=== PATIENT | female | born 1950 | race Caucasian/White ===

== ENCOUNTER → 2016-04-23 | Outpatient (CLI) | payer OTHER, MEDICAID ==
[~2016-04-23] MED LIST: DOXY100C2 PO
--- OUTSIDE RECORDS SUMMARY | 2016-04-23 19:48 | XMS REPORT | Continuity of Care Document ---
Author Author [facility] Organization [facility] Address Unknown Phone Unavailable Care Team Providers Care Staff Midwife/Apprenticeship Director Name Role Phone NO, LOCAL PHYSICIAN PCP Unavailable Insurance Providers Payer Name Policy Number Subscriber Name Relationship [facility] [id number] Carlie Liu 16 Self / Same As Patient Advance Directives Directive Response Recorded Date/Time Advance Directives No 01/12/16 1:30pm Resuscitation Status Full Code 01/12/16 1:30pm Chief Complaint and Reason for Visit Chief Complaint Psych/Social Disorder Reason for Visit Urinary tract infection Psychosis Problems Active Problems Medical Problem Onset Date Status Nausea and vomiting Unknown Acute Psychosis Unknown Acute Urinary tract infection Unknown Acute Medications No medication information available. Social History Social History Problem Response Recorded Date/Time Alcohol Use Denies Use 11/06/2015 11:32pm Recreational Drug Use No 11/06/2015 11:32pm Recent Foreign Travel No 01/12/2016 1:30pm Recent Infectious Disease Exposure No 01/12/2016 1:30pm Hospitalization with Isolation Denies 01/12/2016 1:30pm Smoking Status Never a Smoker 01/12/2016 1:30pm Recent Hopitalizations No 01/12/2016 1:30pm Hospitalization with Isolation Denies 01/12/2016 1:30pm Query Response Start Date Stop Date Smoking Status Never a Smoker Hospital Discharge Instructions No hospital discharge instructions. Plan of Care Discharge Date 01/12/16 8:50pm Disposition 02 XFER SHT-TRM HOSP Condition at Discharge Improved Prescriptions See Medication Section Referrals NO,LOCAL PHYSICIAN - Primary Care Physician Functional Status No functional status results. Allergies, Adverse Reactions, Alerts No known allergies. Immunizations No immunization records. Vital Signs Acute Vital Signs Vital Response Date/Time Temperature (Fahrenheit) 97.6 degrees F (97.6 - 99.5) 01/12/2016 1:30pm Temperature (Calculated Celsius) 36.68305 degrees C (36.4 - 37.5) 01/12/2016 1:30pm Temperature Source Temporal 01/12/2016 1:30pm Pulse Rate (adult) 100 bpm (60 - 90) 01/12/2016 1:30pm Respiratory Rate 30 bpm (12 - 24) 01/12/2016 1:30pm O2 Sat by Pulse Oximetry 100 % (88 - 100) 01/12/2016 1:30pm Blood Pressure 133/87 mm Hg 01/12/2016 1:30pm Blood Pressure Mean 102 mm Hg 01/12/2016 1:30pm Pain Numeric Pain Scale 0-No Pain 01/12/2016 1:30pm Height (Feet) 5 feet 01/12/2016 1:30pm Height (Inches) 3 inches 01/12/2016 1:30pm Height (Calculated Centimeters) 160.991290 cm 01/12/2016 1:30pm Weight (Pounds) 120 pounds 01/12/2016 1:30pm Weight (Calculated Grams) 69996.085 gm 01/12/2016 1:30pm Weight (Calculated Kilograms) 54.754374 kilograms 01/12/2016 1:30pm Capillary Refill Capillary Refill Less Than 3 Seconds 01/12/2016 1:30pm Height 5 ft 3 in Weight 120 lb Body Mass Index 21.3 kg/m^2 Results Laboratory Results Test Name Result Units Flags Reference Collection Date/Time Result Date/ Time Comments White Blood Count 8.2 10^3/uL 4.3-11.0 01/12/2016 2:00pm 01/12/2016 2: 05pm Red Blood Count 4.53 10^6/uL 4.35-5.85 01/12/2016 2:00pm 01/12/2016 2: 05pm Hemoglobin 15.2 G/DL 11.5-16.0 01/12/2016 2:00pm 01/12/2016 2:05pm Hematocrit 41 % 35-52 01/12/2016 2:00pm 01/12/2016 2:05pm Mean Corpuscular Volume 91 FL 80-99 01/12/2016 2:00pm 01/12/2016 2: 05pm Mean Corpuscular Hemoglobin 34 PG 25-34 01/12/2016 2:00pm 01/12/2016 2: 05pm Mean Corpuscular Hemoglobin Concent 37 G/DL H 32-36 01/12/2016 2:00pm 2:05pm Red Cell Distribution Width 13.0 % 10.0-14.5 01/12/2016 2:00pm 2015 2:05pm Platelet Count 200 10^3/uL 130-400 01/12/2016 2:00pm 01/12/2016 2:05pm Mean Platelet Volume 9.1 FL 7.4-10.4 01/12/2016 2:00pm 01/12/2016 2: 05pm Neutrophils (%) (Auto) 73 % 42-75 01/12/2016 2:00pm 01/12/2016 2:05pm Lymphocytes (%) (Auto) 22 % 12-44 01/12/2016 2:00pm 01/12/2016 2:05pm Monocytes (%) (Auto) 4 % 0-12 01/12/2016 2:00pm 01/12/2016 2:05pm Eosinophils (%) (Auto) 1 % 0-10 01/12/2016 2:00pm 01/12/2016 2:05pm Basophils (%) (Auto) 1 % 0-10 01/12/2016 2:00pm 01/12/2016 2:05pm Neutrophils # (Auto) 6.0 X 10^3 1.8-7.8 01/12/2016 2:00pm 01/12/2016 2: 05pm Lymphocytes # (Auto) 1.8 X 10^3 1.0-4.0 01/12/2016 2:00pm 01/12/2016 2: 05pm Monocytes # (Auto) 0.3 X 10^3 0.0-1.0 01/12/2016 2:00pm 01/12/2016 2: 05pm Eosinophils # (Auto) 0.1 10^3/uL 0.0-0.3 01/12/2016 2:00pm 01/12/2016 2 :05pm Basophils # (Auto) 0.1 10^3/uL 0.0-0.1 01/12/2016 2:00pm 01/12/2016 2: 05pm Urine Color YELLOW 01/12/2016 3:51pm 01/12/2016 4:14pm Urine Clarity CLEAR 01/12/2016 3:51pm 01/12/2016 4:14pm Urine pH 5 5-9 01/12/2016 3:51pm 01/12/2016 4:14pm Urine Specific [place] 1.020 1.016-1.022 01/12/2016 3:51pm 2015 4:14pm Urine Protein 1+ * NEGATIVE 01/12/2016 3:51pm 01/12/2016 4:14pm Urine Glucose (UA) NEGATIVE NEGATIVE 01/12/2016 3:51pm 01/12/2016 4: 14pm Urine RBC (Auto) 2+ * NEGATIVE 01/12/2016 3:51pm 01/12/2016 4:14pm Urine Ketones NEGATIVE NEGATIVE 01/12/2016 3:51pm 01/12/2016 4:14pm Urine Nitrite POSITIVE * NEGATIVE 01/12/2016 3:51pm 01/12/2016 4:14pm Urine Bilirubin NEGATIVE NEGATIVE 01/12/2016 3:51pm 01/12/2016 4: 14pm Urine Urobilinogen NORMAL MG/DL NORMAL 01/12/2016 3:51pm 01/12/2016 4: 14pm Urine Leukocyte Esterase 3+ * NEGATIVE 01/12/2016 3:51pm 01/12/2016 4: 14pm Urine RBC 0-2 /HPF 01/12/2016 3:51pm 01/12/2016 4:14pm Urine WBC TNTC /HPF * 01/12/2016 3:51pm 01/12/2016 4:14pm Urine Bacteria LARGE /HPF * 01/12/2016 3:51pm 01/12/2016 4:14pm Urine Crystals NONE /LPF 01/12/2016 3:51pm 01/12/2016 4:14pm Urine Casts NONE /LPF 01/12/2016 3:51pm 01/12/2016 4:14pm Urine Mucus NEGATIVE /LPF 01/12/2016 3:51pm 01/12/2016 4:14pm Urine Culture Indicated YES 01/12/2016 3:51pm 01/12/2016 4:14pm Sodium Level 134 MMOL/L L 135-145 01/12/2016 2:00pm 01/12/2016 2:24pm Potassium Level 3.4 MMOL/L L 3.6-5.0 01/12/2016 2:00pm 01/12/2016 2:24pm Chloride Level 103 MMOL/L 98-107 01/12/2016 2:00pm 01/12/2016 2:24pm Carbon Dioxide Level 19 MMOL/L L 21-32 01/12/2016 2:00pm 01/12/2016 2: 24pm Anion Gap 12 MMOL/L 5-14 01/12/2016 2:00pm 01/12/2016 2:24pm Blood Urea Nitrogen 6 MG/DL L 7-18 01/12/2016 2:00pm 01/12/2016 2:24pm Creatinine 0.80 MG/DL 0.60-1.30 01/12/2016 2:00pm 01/12/2016 2:24pm BUN/Creatinine Ratio 8 01/12/2016 2:00pm 01/12/2016 2:24pm Estimat Glomerular Filtration Rate > 60 01/12/2016 2:00pm 2015 2:24pm GFR INTERPRETIVE DATA UNITS FOR ESTIMATED GFR (eGFR): mL/min/1.73 M2 REFERENCE RANGE FOR ESTIMATED GFR (eGFR) eGFR NORMAL eGFR >60 MODERATELY DECREASED eGFR 30-59 SEVERLY DECREASED eGFR 15-29 KIDNEY FAILURE <15 (OR DIALYSIS) Glucose Level 138 MG/DL H 70-105 01/12/2016 2:00pm 01/12/2016 2:24pm Calcium Level 9.3 MG/DL 8.5-10.1 01/12/2016 2:00pm 01/12/2016 2:24pm Total Bilirubin 1.2 MG/DL H 0.1-1.0 01/12/2016 2:00pm 01/12/2016 2:24pm Alkaline Phosphatase 77 U/L 40-136 01/12/2016 2:00pm 01/12/2016 2:24pm Aspartate Amino Transf (AST/SGOT) 16 U/L 5-34 01/12/2016 2:00pm 2015 2:24pm Alanine Aminotransferase (ALT/SGPT) 10 U/L 0-55 01/12/2016 2:00pm 01/11 2:24pm Total Protein 7.0 G/DL 6.4-8.2 01/12/2016 2:00pm 01/12/2016 2:24pm Albumin 4.3 G/DL 3.2-4.5 01/12/2016 2:00pm 01/12/2016 2:24pm Ammonia 34 UMOL/L H 11-32 01/12/2016 5:29pm 01/12/2016 6:10pm Thyroid Stimulating Hormone (TSH) 2.38 UIU/ML 0.35-4.94 01/12/2016 2: 00pm 01/12/2016 2:49pm Salicylates Level < 5.0 MG/DL L 5.0-20.0 01/12/2016 2:00pm 01/12/2016 2: 24pm Acetaminophen Level < 10 UG/ML L -01/12/2016 2:00pm 01/12/2016 2: 24pm Procedures Procedure Status Date Provider(s) Tracing only of electrocardiogram Active 01/12/16 PABLO PATEL APRN Encounters Encounter Location Arrival/Admit Date Discharge/Depart Date Attending Provider Registered Emergency Room [facility] 01/12/16 1:30pm CUAUHTEMOC LUIS Recent Diagnosis
[2016-04-23 19:50] LABS: BILIRUBIN,URINE NEGATIVE (NEGATIVE); KETONES,URINE NEGATIVE (NEGATIVE); LEUKOCYTE ESTERASE ,URINE 2+ (NEGATIVE); NITRITE,URINE NEGATIVE (NEGATIVE); PH,URINE 6 (5-9); PROTEIN,URINE NEGATIVE (NEGATIVE); UROBILINOGEN,URINE 1 MG/DL (NORMAL)
--- NOTE | 2016-04-24 14:29 | Physician Query-Final Dx ---
MAX QUINTEROS 04/24/16 1429: Clinic Account Progress/Dx Physician Query: Please give a more specific diagnosis for the UA w culture test thank you Date of Service Apr 23, 2016 at 19:[address] DO 04/25/16 0716: Clinic Account Progress/Dx DIAGNOSIS: Diagnosis infection MAX QUINTEROS Apr 24, 2016 14:[address] DO Apr 25, 2016 07:16
== END ==
PROVIDERS: ATTEND Family Medicine
DX: N39.0 Urinary tract infection, site not specified (principal)
CPT/HCPCS: 81000

== ENCOUNTER 2016-07-04 12:39 | Emergency (ER) | payer OTHER, MEDICAID ==
[~2016-07-04] VITALS: Ht 165.1 cm; Wt 52.2 kg
--- NOTE | 2016-07-04 13:23 | ED Cough/URI ---
General Chief Complaint: Cough/Cold/Flu Symptoms Stated Complaint: COUGHING/SOA Nursing Triage Note: PT UNABLE TO TELL THIS RN WHY SHE IS HERE. REPORT RECIEVED FROM NE THAT THE PT WAS TREATED FOR PNEUMONIA TWICE RECENTLY AND STILL HAS REPORTED COUGH AND CONGESTION. Source: patient Exam Limitations: no limitations History of Present Illness Time seen by provider: 13:21 Initial Comments To ER from [facility] accompanied by [facility] staff with reports of a cough productive of yellow sputum. Patient is in the behavioral unit at [facility]. No fevers measured. She does wear oxygen at the facility when necessary. She has recently been on Augmentin and Omnicef for pneumonia. Timing/Duration: just prior to arrival Severity/Quality: moderate Associated Symptoms: cough Allergies and Home Medications Allergies Coded Allergies: No Known Drug Allergies (Unverified , 11/06/15) Home Medications Doxycycline Hyclate 100 Mg Capsule, 100 MG PO BID for 14 Days Prescribed by: PABLO PATEL on 07/04/16 1335 Constitutional: see HPI, No chills, No fever EENTM: see HPI Respiratory: see HPI, cough Cardiovascular: no symptoms reported Genitourinary: no symptoms reported Musculoskeletal: no symptoms reported Skin: no symptoms reported Psychiatric/Neurological: No Symptoms Reported Hematologic/Lymphatic: No Symptoms Reported Immunological/Allergic: no symptoms reported Past Twcvarr-Ntaxaq-Nvukoq Hx Patient Social History Alcohol Use: Denies Use Recreational Drug Use: No Smoking Status: Unknown if Ever Smoked Recent Foreign Travel: No Contact w/Someone Who Travel: No Recent Infectious Disease Expo: No Recent Hopitalizations: No Immunizations Up To Date Tetanus Booster (TDap): Unknown Seasonal Allergies Seasonal Allergies: Yes Surgeries HX Surgeries: Yes (Patient says shes had hundreds of surg. but cannot elaborate ) Surgeries: Gallbladder, Hysterectomy Respiratory Hx Respiratory Disorders: No Cardiovascular Hx Cardiac Disorders: No Neurological Hx Neurological Disorders: No Reproductive System Hx Reproductive Disorders: No Genitourinary Hx Genitourinary Disorders: No Gastrointestinal Hx Gastrointestinal Disorders: No Musculoskeletal Hx Musculoskeletal Disorders: No Endocrine Hx Endocrine Disorders: No HEENT HX ENT Disorders: No Cancer Hx Cancer: No Psychosocial Hx Psychiatric Problems: No Integumentary HX Skin/Integumentary Disorder: No Blood Transfusions Hx Blood Disorders: No Adverse Reaction to a Blood Tr: No Family Medical History Significant Family History: No Pertinent Family Hx Physical Exam Vital Signs Vital Sign - Last 12Hours 07/04/16 07/04/16 13:11 13:37 Temp 97.3 Pulse 82 Resp 18 B/P (MAP) 102/68 Pulse Ox 95 Capillary Refill : Less Than 3 Seconds General Appearance: WD/WN, no apparent distress Eyes: Bilateral Eye EOMI, Bilateral Eye Normal Inspection, Bilateral Eye PERRL HEENT: PERRL/EOMI, normal ENT inspection Neck: non-tender, full range of motion Respiratory: chest non-tender, lungs clear, normal breath sounds, no respiratory distress, no accessory muscle use Cardiovascular: regular rate, rhythm, no murmur Gastrointestinal: normal bowel sounds, non tender, soft Extremities: normal range of motion, non-tender Neurologic/Psychiatric: alert, normal mood/affect, other (patient is in her usual state of behavior with just say that she is somewhat manic, very loud when speaking, refuses to go into room 10) Skin: normal color, warm/dry Progress/Results/Core Measures Results/Orders My Orders Orders - PABLO PATEL APRN Chest Pa/Lat (2 View) (07/04/16 13:14) Vital Signs/I&O Vital Sign - Last 12Hours 07/04/16 07/04/16 13:11 13:37 Temp 97.3 97.3 Pulse 82 82 Resp 18 18 B/P (MAP) 102/68 Pulse Ox 95 Blood Pressure Mean: 79 Diagnostic Imaging Diagonstic Imaging: Xray Comments NAME: [facility] REC#: [id number] PT STATUS: DEP ER : 1950 PHYSICIAN: PABLO PATEL APRN ADMIT DATE: 07/04/16/ER Signed Date of Exam: 07/04/16 CHEST PA/LAT (2 VIEW) EXAMINATION: PA and lateral views of the chest. COMPARISON: 11/06/15. INDICATION: Cough and shortness of breath. FINDINGS: There is pulmonary hyperinflation and background interstitial thickening seen likely chronic. There is prominence of the right hilum on the PA projection that does not have a definite correlate on the lateral view. This is likely vascular. The heart size is mildly enlarged. No pulmonary edema. No effusion or pneumothorax. IMPRESSION: 1. COPD changes with background interstitial thickening likely chronic. 2. Prominence of the right hilum favored to be vascular. CT scan evaluation is suggested however to rule out lymphadenopathy or mass. Dictated by: Dictated on workstation # [id number] Dict: 07/04/16 1336 Trans: 07/04/16 1348 [facility] [id number] Interpreted by: KOLTON PEREZ MD Electronically signed by:KOLTON PEREZ MD 07/04/16 1348 Departure Communication Progress Notes Given the patient's history of psychosis and her current agitated/slightly manic behavior I would like to avoid steroids as long as possible. Will also avoid azithromycin due to the risk of QT prolongation Impression Impression: Primary Impression: Bronchitis Additional Impression: Abnormal chest xray Disposition: HOME, SELF-CARE Condition: Stable Departure-Patient Inst. Decision time for Depature: 13:34 Referrals: AWILDA LANE DO (PCP/Family) Primary Care Physician Patient Instructions: Acute Bronchitis, Adult (DC) Add. Discharge Instructions: 1. Antibiotics as directed 2. Follow-up with Dr. Dr. Lane this week 3. All discharge instructions reviewed with patient and/or family. Voiced understanding. Scripts Doxycycline Hyclate (Doxycycline Hyclate) 100 Mg Capsule 100 MG PO BID for 14 Days, CAP Prov: PABLO PATEL APRN 07/04/16 Copy Copies To 1: AWILDA LANE PETER J APRN Jul 04, 2016 13:23
[2016-07-04] MEDS ORDERED: DOXY100C2 PO (13:35)
[2016-07-04 13:37] VITALS: BP 102/68
--- NOTE | 2016-07-04 13:43 | Diagnostic Imaging Report ---
EXAMINATION: PA and lateral views of the chest. COMPARISON: 11/06/15. INDICATION: Cough and shortness of breath. FINDINGS: There is pulmonary hyperinflation and background interstitial thickening seen likely chronic. There is prominence of the right hilum on the PA projection that does not have a definite correlate on the lateral view. This is likely vascular. The heart size is mildly enlarged. No pulmonary edema. No effusion or pneumothorax. IMPRESSION: 1. COPD changes with background interstitial thickening likely chronic. 2. Prominence of the right hilum favored to be vascular. CT scan evaluation is suggested however to rule out lymphadenopathy or mass. Dictated by: Dictated on workstation # [id number]
--- OUTSIDE RECORDS SUMMARY | 2016-07-08 05:02 | XMS REPORT | Continuity of Care Document ---
Author Author [facility] Organization [facility] Address Unknown Phone Unavailable Allergies Active Description Code Type Severity Reaction Onset Reported/Identified Relationship to Patient Clinical Status Yes No Known Drug Allergies [id number] Drug Allergy Unknown N/ A 11/06/2015 Medications Problems Date Dx Coded Attending Type Code Diagnosis Diagnosed By 08/15/2015 ALONDRA FELIX, [place] Andre Ot Z53.21 PROC/TRTMT NOT CRD OUT D/T PT LV BEF SEE 11/07/2015 DIOGENES FELIX, DC Bhagat Ot E86.9 VOLUME DEPLETION, UNSPECIFIED 11/07/2015 DIOGENES FELIX, DC Bhagat Ot N30.00 ACUTE CYSTITIS WITHOUT HEMATURIA 11/07/2015 DIOGENES FELIX, DC Bhagat Ot R11.14 BILIOUS VOMITING 11/07/2015 DIOGENES FELIX, DC Bhagat Ot E86.9 VOLUME DEPLETION, UNSPECIFIED 11/07/2015 DIOGENES FELIX, DC Bhagat Ot N30.00 ACUTE CYSTITIS WITHOUT HEMATURIA 11/07/2015 DIOGENES FELIX, DC Bhagat Ot R11.14 BILIOUS VOMITING 11/11/2015 DIOGENES FELIX, DC Bhagat Ot E86.9 VOLUME DEPLETION, UNSPECIFIED 11/11/2015 DIOGENES FELIX, DC Bhagat Ot N30.00 ACUTE CYSTITIS WITHOUT HEMATURIA 11/11/2015 DIOGENES FELIX, DC Bhagat Ot R11.14 BILIOUS VOMITING 11/11/2015 DIOGENES FELIX, CD Bhagat Ot E86.9 VOLUME DEPLETION, UNSPECIFIED 11/11/2015 DIOGENES FELIX, DC Bhagat Ot N30.00 ACUTE CYSTITIS WITHOUT HEMATURIA 11/11/2015 DC SHETTY MD Ot R11.14 BILIOUS VOMITING 01/12/2016 TOBY, CUAUHTEMOC BUTCHER ASSISTANT Ot F29 UNSP PSYCHOSIS NOT DUE TO A SUBSTANCE OR 01/12/2016 TOBY, CUAUHTEMOC BUTCHER ASSISTANT Ot N39.0 URINARY TRACT INFECTION, SITE NOT SPECIF 01/13/2016 TOBY, CUAUHTEMOC BUTCHER ASSISTANT Ot F29 UNSP PSYCHOSIS NOT DUE TO A SUBSTANCE OR 01/13/2016 TOBY, CUAUHTEMOC BUTCHER ASSISTANT Ot N39.0 URINARY TRACT INFECTION, SITE NOT SPECIF 04/26/[address] DO Ot N39.0 URINARY TRACT INFECTION, SITE NOT SPECIF 04/29/[address] DO Ot N39.0 URINARY TRACT INFECTION, SITE NOT SPECIF Procedures Results Test Result Range Complete blood count (CBC) with automated white blood cell (WBC) differential - 01/12/16 14:00 Blood leukocytes automated count (number/volume) 8.2 10*3/ uL 4.3-11.0 Blood erythrocytes automated count (number/volume) 4.53 10*6 /uL 4.35-5.85 Venous blood hemoglobin measurement (mass/volume) 15.2 g/dL 11.5-16.0 Blood hematocrit (volume fraction) 41 % 35-52 Automated erythrocyte mean corpuscular volume 91 [foz_us] 80-99 Automated erythrocyte mean corpuscular hemoglobin (mass per erythrocyte) 34 pg 25-34 Automated erythrocyte mean corpuscular hemoglobin concentration measurement ( mass/volume) 37 g/dL 32-36 Automated erythrocyte distribution width ratio 13.0 % 10.0-14.5 Automated blood platelet count (count/volume) 200 10*3/uL 130-400 Automated blood platelet mean volume measurement 9.1 [foz_us ] 7.4-10.4 Automated blood neutrophils/100 leukocytes 73 % 42-75 Automated blood lymphocytes/100 leukocytes 22 % 12-44 Blood monocytes/100 leukocytes 4 % 0-12 Automated blood eosinophils/100 leukocytes 1 % 0-10 Automated blood basophils/100 leukocytes 1 % 0-10 Blood neutrophils automated count (number/volume) 6.0 10*3 1.8-7.8 Blood lymphocytes automated count (number/volume) 1.8 10*3 1.0-4.0 Blood monocytes automated count (number/volume) 0.3 10*3 0.0-1.0 Automated eosinophil count 0.1 10*3/uL 0.0-0.3 Automated blood basophil count (count/volume) 0.1 10*3/uL 0.0-0.1 Comprehensive metabolic panel - 01/12/16 14:00 Serum or plasma sodium measurement (moles/volume) 134 mmol/ L 135-145 Serum or plasma potassium measurement (moles/volume) 3.4 mmol/L 3.6-5.0 Serum or plasma chloride measurement (moles/volume) 103 mmol /L 98-107 Carbon dioxide 19 mmol/L 21-32 Serum or plasma anion gap determination (moles/volume) 12 mmol/L 5-14 Serum or plasma urea nitrogen measurement (mass/volume) 6 mg /dL 7-18 Serum or plasma creatinine measurement (mass/volume) 0.80 mg /dL 0.60-1.30 Serum or plasma urea nitrogen/creatinine mass ratio 8 NRG Serum or plasma creatinine measurement with calculation of estimated glomerular filtration rate > NRG Serum or plasma glucose measurement (mass/volume) 138 mg/dL 70-105 Serum or plasma calcium measurement (mass/volume) 9.3 mg/dL 8.5-10.1 Serum or plasma total bilirubin measurement (mass/volume) 1.2 mg/dL 0.1-1.0 Serum or plasma alkaline phosphatase measurement (enzymatic activity/volume) 77 U/L 40-136 Serum or plasma aspartate aminotransferase measurement (enzymatic activity/ volume) 16 U/L 5-34 Serum or plasma alanine aminotransferase measurement (enzymatic activity/volume ) 10 U/L 0-55 Serum or plasma protein measurement (mass/volume) 7.0 g/dL 6.4-8.2 Serum or plasma albumin measurement (mass/volume) 4.3 g/dL 3.2-4.5 THYROID STIMULATING HORMONE - 01/12/16 14:00 THYROID STIMULATING HORMONE 2.38 u[iU]/mL 0.35-4.94 Serum or plasma salicylates measurement (mass/volume) - 01/12/16 14:00 Serum or plasma salicylates measurement (mass/volume) < mg/ dL 5.0-20.0 Serum or plasma acetaminophen measurement (mass/volume) - 01/12/16 14:00 Serum or plasma acetaminophen measurement (mass/volume) < ug /mL 10-30 Urine drug screening test - 01/12/16 15:51 Urine phencyclidine detection by screening method NEGATIVE NEGATIVE Urine benzodiazepines detection by screening method NEGATIVE NEGATIVE Urine cocaine detection NEGATIVE NEGATIVE Urine amphetamines detection by screening method NEGATIVE NEGATIVE Urine methamphetamine detection by screening method NEGATIVE NEGATIVE Urine cannabinoids detection by screening method NEGATIVE NEGATIVE Urine opiates detection by screening method NEGATIVE NEGATIVE Urine barbiturates detection NEGATIVE NEGATIVE Screening urine tricyclic antidepressants detection NEGATIVE NEGATIVE Urine methadone detection by screening method NEGATIVE NEGATIVE Urine oxycodone detection NEGATIVE NEGATIVE Urine propoxyphene detection NEGATIVE NEGATIVE Urine buprenophrine screen NEGATIVE NEGATIVE Complete urinalysis with reflex to culture - 01/12/16 15:51 Urine color determination YELLOW NRG Urine clarity determination CLEAR NRG Urine pH measurement by test strip 5 5- 9 Specific gravity of urine by test strip 1.020 1.016-1.022 Urine protein assay by test strip, semi-quantitative 1+ NEGATIVE Urine glucose detection by automated test strip NEGATIVE NEGATIVE Erythrocytes detection in urine sediment by light microscopy 2+ NEGATIVE Urine ketones detection by automated test strip NEGATIVE NEGATIVE Urine nitrite detection by test strip POSITIVE NEGATIVE Urine total bilirubin detection by test strip NEGATIVE NEGATIVE Urine urobilinogen measurement by automated test strip (mass/volume) NORMAL NORMAL Urine leukocyte esterase detection by dipstick 3+ NEGATIVE Automated urine sediment erythrocyte count by microscopy (number/high power field) [HPF] NRG Automated urine sediment leukocyte count by microscopy (number/high power field ) TNTC NRG Bacteria detection in urine sediment by light microscopy LARGE NRG Crystals detection in urine sediment by light microscopy NONE NRG Casts detection in urine sediment by light microscopy NONE NRG Mucus detection in urine sediment by light microscopy NEGATIVE NRG Complete urinalysis with reflex to culture YES NRG Bacterial urine culture - 01/12/16 15:51 Bacterial urine culture [id number] NRG COLONY COUNT >100,000/ML NRG FTX;REPORTABLE SENSITIVITY REPORTED AT 1734, 01-13-16 [facility] Bacterial susceptibility panel - 01/12/16 15:51 Gentamicin susceptibility test by minimum inhibitory concentration <= NRG Trimethoprim/sulfamethoxazole susceptibility test by minimum inhibitoryconcentration <= NRG Ampicillin susceptibility test by minimum inhibitory concentration 8 NRG Tobramycin susceptibility test by minimum inhibitory concentration <= NRG Cefazolin susceptibility test by minimum inhibitory concentration <= NRG Ceftriaxone susceptibility test by minimum inhibitory concentration <= NRG Ampicillin/sulbactam susceptibility test by minimum inhibitory concentration 4 NRG Piperacillin/tazobactam susceptibility test by minimum inhibitory concentration <= NRG Ciprofloxacin susceptibility test by minimum inhibitory concentration <= NRG Meropenem susceptibility test by minimum inhibitory concentration <= NRG Nitrofurantoin susceptibility test by minimum inhibitory concentration 32 NRG Aztreonam susceptibility test by minimum inhibitory concentration <= NRG Extended spectrum beta lactamase (ESBL) producing bacteria susceptibility test by minimum inhibitory concentration - [facility] Ammonia - 01/12/16 17:29 Ammonia 34 umol/L 11-32 Serum or plasma ethanol measurement (mass/volume) - 01/12/16 17:29 Serum or plasma ethanol measurement (mass/volume) 16 mg/dL <10 Complete urinalysis with reflex to culture - 04/23/16 19:30 Urine color determination YELLOW NRG Urine clarity determination SLIGHTLY CLOUDY NRG Urine pH measurement by test strip 6 5- 9 Specific gravity of urine by test strip 1.020 1.016-1.022 Urine protein assay by test strip, semi-quantitative NEGATIVE NEGATIVE Urine glucose detection by automated test strip NEGATIVE NEGATIVE Erythrocytes detection in urine sediment by light microscopy 2+ NEGATIVE Urine ketones detection by automated test strip NEGATIVE NEGATIVE Urine nitrite detection by test strip NEGATIVE NEGATIVE Urine total bilirubin detection by test strip NEGATIVE NEGATIVE Urine urobilinogen measurement by automated test strip (mass/volume) 1 mg/dL NORMAL Urine leukocyte esterase detection by dipstick 2+ NEGATIVE Automated urine sediment erythrocyte count by microscopy (number/high power field) [HPF] NRG Automated urine sediment leukocyte count by microscopy (number/high power field ) [HPF] NRG Bacteria detection in urine sediment by light microscopy FEW NRG Squamous epithelial cells detection in urine sediment by light microscopy 5-10 NRG Crystals detection in urine sediment by light microscopy NONE NRG Casts detection in urine sediment by light microscopy NONE NRG Mucus detection in urine sediment by light microscopy NEGATIVE NRG Complete urinalysis with reflex to culture NO NRG Encounters ACCT No. Visit Date/Time Discharge Status Pt. Type Provider Facility Loc./Unit Complaint [id number] 01/12/2016 13:30:00 2015 20:50:00 DIS Emergency CUAUHTEMOC LUIS [facility] ER [facility] [id number] 11/06/2015 22:30:00 2015 00:46:00 DIS Inpatient DIOGENES FELIX, DC Bhagat [facility] 4TH UTI, VOLUME DEPLETION [id number] 08/15/2015 01:51:00 2015 02:10:00 DIS Emergency ALONDRA FELIX, [place] Andre [facility] [id number] 04/23/2016 19:44:[address] L[address] DO [facility] S/S OF UTI
== END 2016-07-04 13:38 | disposition home or self-care (01) ==
LOC: EDUNIT# 12:39 → ER 12:42
DX: J44.9 Chronic obstructive pulmonary disease, unspecified (principal); R91.8 Other nonspecific abnormal finding of lung field
CPT/HCPCS: 71020; 99282

== ENCOUNTER → 2017-03-08 | Outpatient (CLI) | payer MEDICAID, OTHER ==
[~2017-03-08] MED LIST changes: +CATHETER FLUSH 10 ML SYR IV PRN; +IOHEXOL 350 MG/ML 100 ML (OMNIPAQUE 350) VIAL IV ONE; +NS 100 ML (IVPB) BAG IV ONE
== END ==
LOC: RAD 07:37
PROVIDERS: ATTEND Family Medicine
DX: R93.5 Abnormal findings on diagnostic imaging of other abdominal regions, including retroperitoneum (principal)

== ENCOUNTER → 2017-03-25 | Outpatient (CLI) | payer MEDICAID ==
[~2017-03-25] MED LIST changes: -CATHETER FLUSH 10 ML SYR IV PRN; -IOHEXOL 350 MG/ML 100 ML (OMNIPAQUE 350) VIAL IV ONE; -NS 100 ML (IVPB) BAG IV ONE
--- NOTE | 2017-03-25 17:58 | Diagnostic Imaging Report ---
PROCEDURE: CT abdomen and pelvis without contrast. TECHNIQUE: Multiple contiguous axial images were obtained through the abdomen and pelvis without the use of intravenous contrast. INDICATION: Abdominal pain. FINDINGS: The lung bases demonstrate minimal atelectasis. Please note that there is paucity of fat in the abdomen and lack of intravenous and oral contrast on this exam which would limit evaluation. The liver is slightly heterogeneous with no definite focal mass on this unenhanced exam. The spleen is mildly enlarged measuring 13 cm in AP dimension. The pancreas and the adrenal glands are not well evaluated. There are multiple tortuous vessels suggested near the spleen. This could be secondary to portal hypertension or vascular obstruction. The kidneys demonstrate no hydronephrosis and no stones. The abdominal aorta demonstrates mild ectasia distally with maximum caliber of 2.2 cm. The urinary bladder is moderately distended. There is suggestion of prior hysterectomy or atrophic uterus. There is dilated rectum with significant fecal material compatible with constipation and mild fecal impaction. No significant free fluid or fluid collection in the abdomen or pelvis is identified. The osseous structures demonstrate scoliosis and evidence of chronic appearing compression fractures in the lower thoracic spine and deformity in the pelvis with no definite acute fracture. IMPRESSION: 1. There is dilatation of the rectum with large amounts of fecal material in the rectum and colon compatible with constipation and mild fecal impaction. 2. Suggestion of tortuous vessels near the spleen which could be secondary to varices from portal hypertension or collaterals related to vascular obstruction. 3. Mildly enlarged spleen. 4. There is overall limited evaluation secondary to lack of intravenous and oral contrast. Dictated by: Dictated on workstation # [id number]
== END ==
LOC: RAD 13:32
PROVIDERS: ATTEND Family Medicine
DX: K59.39 Other megacolon (principal); R16.1 Splenomegaly, not elsewhere classified
CPT/HCPCS: 74176

== ENCOUNTER 2017-06-02 15:54 | Inpatient (IN) | payer MEDICAID ==
[2017-06-02] VITALS (8 sets, daily range): BP systolic 88–102; BP diastolic 57–67
[~2017-06-02] VITALS: Ht 152.4 cm; Wt 46.3 kg
[2017-06-02] MEDS ORDERED: NS IV 500 ML 500 ML ONE ×2 (15:58→17:23)
--- OUTSIDE RECORDS SUMMARY | 2017-06-02 15:59 | XMS REPORT | Continuity of Care Document ---
Author Author [facility] Organization [facility] Address Unknown Phone Unavailable Allergies Active Description Code Type Severity Reaction Onset Reported/Identified Relationship to Patient Clinical Status Yes No Known Drug Allergies [id number] Drug Allergy Unknown N/A 11/06/2015 Medications There is no data. Problems Date Dx Coded Attending Type Code Diagnosis Diagnosed By 08/15/2015 ALONDRA FELIX, [place] Andre Ot Z53.21 PROC/TRTMT NOT CRD OUT D/T PT LV BEF SEE 11/07/2015 DC SHETTY MD Ot E86.9 VOLUME DEPLETION, UNSPECIFIED 11/07/2015 DC SHETTY MD Ot N30.00 ACUTE CYSTITIS WITHOUT HEMATURIA 11/07/2015 DC SHETTY MD Ot R11.14 BILIOUS VOMITING 11/07/2015 DC SHETTY MD Ot E86.9 VOLUME DEPLETION, UNSPECIFIED 11/07/2015 DC SHETTY MD Ot N30.00 ACUTE CYSTITIS WITHOUT HEMATURIA 11/07/2015 DC SHETTY MD Ot R11.14 BILIOUS VOMITING 11/11/2015 DC SHETTY MD Ot E86.9 VOLUME DEPLETION, UNSPECIFIED 11/11/2015 DC SHETTY MD Ot N30.00 ACUTE CYSTITIS WITHOUT HEMATURIA 11/11/2015 DC SHETTY MD Ot R11.14 BILIOUS VOMITING 11/11/2015 DC SHETTY MD Ot E86.9 VOLUME DEPLETION, UNSPECIFIED 11/11/2015 DC SHETTY MD Ot N30.00 ACUTE CYSTITIS WITHOUT HEMATURIA 11/11/2015 DC SHETTY MD Ot R11.14 BILIOUS VOMITING 01/12/2016 CUAUHTEMOC LUIS Ot F29 UNSP PSYCHOSIS NOT DUE TO A SUBSTANCE OR 01/12/2016 CUAUHTEMOC LUIS Ot N39.0 URINARY TRACT INFECTION, SITE NOT SPECIF 01/13/2016 CUAUHTEMOC LUIS Ot F29 UNSP PSYCHOSIS NOT DUE TO A SUBSTANCE OR 01/13/2016 CUAUHTEMOC LUIS Ot N39.0 URINARY TRACT INFECTION, SITE NOT SPECIF 04/26/2016 GELLENDER DO, AWILDA Agarwal Ot N39.0 URINARY TRACT INFECTION, SITE NOT SPECIF 04/29/2016 GELLENDER DO, AWILDA Agarwal Ot N39.0 URINARY TRACT INFECTION, SITE NOT SPECIF 07/04/2016 GELLENDER DO, AWILDA Agarwal Ot N39.0 URINARY TRACT INFECTION, SITE NOT SPECIF 07/04/2016 PABLO PATEL APRN Ot J44.9 CHRONIC OBSTRUCTIVE PULMONARY DISEASE, U 07/04/2016 PABLO PATEL SKETCH MAKER Ot R05 COUGH 07/04/2016 PABLO PATEL APRN Ot R91.8 OTHER NONSPECIFIC ABNORMAL FINDING OF ROHIT 07/05/2016 PABLO PATEL APRN Ot J44.9 CHRONIC OBSTRUCTIVE PULMONARY DISEASE, U 07/05/2016 PABLO PATEL APRN Ot R05 COUGH 07/05/2016 PABOL PATEL APRN Ot R91.8 OTHER NONSPECIFIC ABNORMAL FINDING OF ROHIT 07/17/2016 GELJEANNIE PURCELL, AWILDA Agarwal Ot N39.0 URINARY TRACT INFECTION, SITE NOT SPECIF 03/31/2017 GELLENDER DO, AWILDA Agarwal Ot K59.39 OTHER MEGACOLON 03/31/2017 GELLENDER DO, AWILDA Agarwal Ot R16.1 SPLENOMEGALY, NOT ELSEWHERE CLASSIFIED 04/10/2017 GELLENDER DO, AWILDA Agarwal Ot K59.39 OTHER MEGACOLON 04/10/2017 GELLENDER DO, AWILDA A Ot R16.1 SPLENOMEGALY, NOT ELSEWHERE CLASSIFIED Procedures There is no data. Results Test Result Range Complete blood count (CBC) with automated white blood cell (WBC) differential - 01/12/16 14:00 Blood leukocytes automated count (number/volume) 8.2 10*3/uL 4.3-11.0 Blood erythrocytes automated count (number/volume) 4.53 10*6/uL 4.35-5.85 Venous blood hemoglobin measurement (mass/volume) 15.2 [...] Automated blood platelet mean volume measurement 9.1 [foz_us] 7.4-10.4 Automated blood neutrophils/100 leukocytes 73 % [...] Serum or plasma sodium measurement (moles/volume) 134 mmol/L 135-145 Serum or plasma potassium measurement (moles/volume) 3.4 mmol/L 3.6-5.0 Serum or plasma chloride measurement (moles/volume) 103 mmol/L 98-107 Carbon dioxide 19 mmol/L 21-32 Serum or plasma anion gap determination (moles/volume) 12 mmol/L 5-14 Serum or plasma urea nitrogen measurement (mass/volume) 6 mg/dL 7-18 Serum or plasma creatinine measurement (mass/volume) 0.80 mg/dL 0.60-1.30 Serum or plasma urea nitrogen/creatinine mass [...] Serum or plasma salicylates measurement (mass/volume) < mg/dL 5.0-20.0 Serum or plasma acetaminophen measurement (mass/volume) - 01/12/16 14:00 Serum or plasma acetaminophen measurement (mass/volume) < ug/mL 10-30 Urine drug screening test - 01/12/16 [...] Urine pH measurement by test strip 5 5-9 Specific gravity of urine by test strip 1.020 1.016- 1.022 Urine protein assay by test strip, semi-quantitative [...] culture - 01/12/16 15:51 Bacterial urine culture [id number] NRG COLONY COUNT >100,000/ML NRG FTX;REPORTABLE SENSITIVITY REPORTED AT 1734, 01-13-16 NR Bacterial susceptibility panel - 01/12/16 15:51 Gentamicin susceptibility test by minimum inhibitory concentration < = NRG Trimethoprim/sulfamethoxazole susceptibility test by minimum inhibitoryconcentration <= NRG Ampicillin susceptibility test by minimum inhibitory concentration 8 NRG Tobramycin susceptibility test by minimum inhibitory concentration < = NRG Cefazolin susceptibility test by minimum inhibitory concentration < = NRG Ceftriaxone susceptibility test by minimum inhibitory concentration <= NRG Ampicillin/sulbactam susceptibility test by minimum inhibitory concentration 4 NRG Piperacillin/tazobactam susceptibility test by minimum inhibitory concentration <= NRG Ciprofloxacin susceptibility test by minimum inhibitory concentration <= NRG Meropenem susceptibility test by minimum inhibitory concentration < = NRG Nitrofurantoin susceptibility test by minimum inhibitory concentration 32 NRG Aztreonam susceptibility test by minimum inhibitory concentration < = NRG Extended spectrum beta lactamase (ESBL) producing bacteria susceptibility test by minimum inhibitory concentration - NRG Ammonia - 01/12/16 17:29 Ammonia 34 umol/L 11-32 Serum or plasma ethanol measurement (mass/volume) - 01/12/16 17:29 Serum or plasma ethanol measurement (mass/volume) 16 mg/dL <10 Complete urinalysis with reflex to culture - 04/23/16 19:30 Urine color determination YELLOW NRG Urine clarity determination SLIGHTLY CLOUDY NRG Urine pH measurement by test strip 6 5-9 Specific gravity of urine by test strip 1.020 1.016- 1.022 Urine protein assay by test strip, semi-quantitative [...] Status Pt. Type Provider Facility Loc./Unit Complaint [id number] 03/25/2017 13:32:00 03/25/2017 23:59:[address] DO [facility] RAD ULTRASOUND REPORT SUBOPTICAL OF ABD [id number] 03/08/2017 07:37:00 03/08/2017 23:59:[address] DO [facility] RAD ABN US [id number] 07/04/2016 12:42:00 07/04/2016 13:38:00 DIS Emergency PABLO PATEL APRN [facility] ER COUGHING/SOA [id number] 04/23/2016 19:44:00 04/23/2016 23:59:[address] DO [facility] GLC S/S OF UTI [id number] 01/12/2016 13:30:00 01/12/2016 20:50:00 DIS Emergency CUAUHTEMOC LUIS [facility] ER AMS [id number] 11/06/2015 22:30:00 11/07/2015 00:46:00 DIS Inpatient DIOGENES FELIX, DC Bhagat [facility] 4TH UTI, VOLUME DEPLETION [id number] 08/15/2015 01:51:00 08/15/2015 02:10:00 DIS Emergency ALONDRA FELIX, [place] Andre [facility] ER AMS
[2017-06-02] MEDS ORDERED: FUROSEMIDE 40 MG/4 ML INJ (LASIX) IV STA (16:14)
[2017-06-02 16:52] LABS: BASOPHILS # (AUTO) 0.1 10^3/uL (0.0-0.1); BASOPHILS % (AUTO) 1 % (0-10); EOSINOPHILS % (AUTO) 0 % (0-10); HEMATOCRIT 38 % (35-52); HEMOGLOBIN 13.3 G/DL (11.5-16.0); LYMPHOCYTES # (AUTO) 0.7 X 10^3 (1.0-4.0); LYMPHOCYTES % (AUTO) 7 % (12-44); MEAN CORPUSCULAR HEMOGLOBIN 33 PG (25-34); MEAN CORPUSCULAR HGB CONC 35 G/DL (32-36); MEAN CORPUSCULAR VOLUME 94 FL (80-99); MONOCYTES # (AUTO) 0.4 X 10^3 (0.0-1.0); MONOCYTES % (AUTO) 4 % (0-12); NEUTROPHILS # (AUTO) 9.1 X 10^3 (1.8-7.8); NEUTROPHILS % (AUTO) 89 % (42-75); PLATELET COUNT 132 10^3/uL (130-400); RED BLOOD COUNT 4.01 10^6/uL (4.35-5.85); RED CELL DISTRIBUTION WIDTH 15.5 % (10.0-14.5); WHITE BLOOD COUNT 10.2 10^3/uL (4.3-11.0)
[2017-06-02 16:59] LABS: ABG BASE EXCESS 0.2 MMOL/L (-2.5-2.5); ABG OXYGEN SATURATION 94 % (94-100); ABG PCO2 55 MMHG (35-45); ABG PO2 79 MMHG (79-93); ABG TCO2 28.1 MMOL/L (21.0-31.0)
[2017-06-02 17:00] LABS: CLARITY,URINE SLIGHTLY CLOUDY; COLOR,URINE YELLOW; GLUCOSE, URINE (UA) NEGATIVE (NEGATIVE); KETONES,URINE NEGATIVE (NEGATIVE); LEUKOCYTE ESTERASE ,URINE 1+ (NEGATIVE); NITRITE,URINE NEGATIVE (NEGATIVE); PH,URINE 6 (5-9); PROTEIN,URINE 2+ (NEGATIVE); UROBILINOGEN,URINE 8 MG/DL (NORMAL)
[2017-06-02 17:00] LABS: ABG PH 7.29 (7.37-7.43); INSPIRED O2 100%; PATIENT TEMP 96.2; VENTILATOR YES
[2017-06-02 17:01] LABS: INR 2.6 (0.8-1.4); PROTHROMBIN TIME PATIENT 27.3 SEC (12.2-14.7)
--- NOTE | 2017-06-02 17:01 | ED Respiratory ---
General Chief Complaint: Respiratory Problems Stated Complaint: SOA Source: EMS, longterm records Exam Limitations: clinical condition History of Present Illness Date Seen by Provider: Jun 02, 2017 Time Seen by Provider: 15:57 Initial Comments Here by EMS with report of shortness of breath. Patient was hypoxic at the longterm and arrives on 15 L via mask with O2 sat of 88 percent. This subsequently dropped to 65 percent after arrival. Patient is confused and pulling at the lines and unable to answer questions or provide any detailed. Reportedly has history of pneumonia recently per report. Timing/Duration: yesterday Severity: severe Prior Episodes/Possible Cause: occasional episodes Associated Symptoms: shortness of breath Allergies and Home Medications Allergies Coded Allergies: No Known Drug Allergies (Unverified , 11/06/15) Home Medications Doxycycline Hyclate 100 Mg Capsule, 100 MG PO BID for 14 Days Prescribed by: PABLO PATEL on 07/04/16 1335 Constitutional: see HPI Other Unable to complete review of systems due to altered mental status Past Hbbawyi-Nfjfed-Tkqkvz Hx Patient Social History Former Smoker, Quit: Nov 06, 2015 Recent Hopitalizations: No Immunizations Up To Date Tetanus Booster (TDap): Unknown Seasonal Allergies Seasonal Allergies: Yes Surgeries Surgeries: Gallbladder, Hysterectomy Reproductive System Hx Reproductive Disorders: No Blood Transfusions Adverse Reaction to a Blood Tr: No Reviewed Nursing Assessment Reviewed/Agree w Nursing PMH: Yes Family Medical History Significant Family History: No Pertinent Family Hx Other History per records as patient unable to answer questions for self. Physical Exam Vital Signs Vital Signs - First Documented 06/02/17 15:55 Temp 96.2 Pulse 103 Resp 38 B/P (MAP) 110/61 (77) Pulse Ox 62 O2 Delivery Non Rebreather O2 Flow Rate 15.00 Capillary Refill : General Appearance: WD/WN, severe distress HEENT: PERRL/EOMI, pharynx normal Neck: full range of motion, supple Respiratory: respiratory distress, crackles, rales, other (crackles heard throughout all lung haddad.) Cardiovascular: regular rate, rhythm, no murmur Gastrointestinal: non tender, soft Extremities: non-tender, no calf tenderness, pedal edema (4+ edema to the knees bilateral with 2+ edema to the upper thighs.) Neurologic/Psychiatric: disoriented x 3 Skin: warm/dry, pallor Focused Exam Evaluation Lactate Level Laboratory Tests 06/02/17 16:04: Lactic Acid Level 5.32*H Lactic Acid Level Laboratory Tests Test 06/02/17 16:04 Lactic Acid Level 5.32 MMOL/L (0.50-2.00) *H Lumen: triple Central Line Procedure: betadine prep, sterile drapes applied, sterile dressing applied Position: internal jugular (R) Complications: none Post Position: sutured, good blood return, position confirmed w/ CXR Progress Central line placed due to emergent condition including hypotension and respiratory failure. Placed via ultrasound guidance times one stick with no complications. Covered with sterile dressing. Date of ETT Placement: Jun 02, 2017 Time of ETT Placement: 16:05 Intubation Method: orotracheal Tube Size: 7.5 Medications: Etomidate, Succinylcholine Intubation Complications: no complications Post Intubation Xray: Yes Progress/Xray Impression: tube in good position above the fox and below clavicles. Progress Intubation and required due to respiratory failure. Intubated via video scope times one attempt. 23 cm at the lips. No complications. Progress/Results/Core Measures Suspected Sepsis SIRS Temperature: Pulse: Respiratory Rate: Laboratory Tests 06/02/17 16:36: White Blood Count 10.2 Blood Pressure / Mean: Laboratory Tests 06/02/17 16:04: Lactic Acid Level 5.32*H Laboratory Tests 06/02/17 16:36: Creatinine 0.60, INR Comment 2.6H, Platelet Count 132, Total Bilirubin 3.8H Results/Orders Lab Results Laboratory Tests Test 06/02/17 16:04 06/02/17 16:10 06/02/17 16:36 06/02/17 16:47 Range/Units Lactic Acid Level 5.32 *H 0.50-2.00 MMOL/L Urine Color YELLOW Urine Clarity SLIGHTLY CLOUDY Urine pH 6 5-9 Urine Specific [place] 1.025 H 1.016-1.022 Urine Protein 2+ H NEGATIVE Urine Glucose (UA) NEGATIVE NEGATIVE Urine Ketones NEGATIVE NEGATIVE Urine Nitrite NEGATIVE NEGATIVE Urine Bilirubin 1+ H NEGATIVE Urine Urobilinogen 8 H NORMAL MG/DL Urine Leukocyte Esterase 1+ H NEGATIVE Urine RBC (Auto) 2+ H NEGATIVE Urine RBC 5-10 H /HPF Urine WBC 2-5 /HPF Urine Squamous Epithelial Cells 2-5 /HPF Urine Crystals NONE /LPF Urine Bacteria FEW H /HPF Urine Casts PRESENT /LPF Urine Hyaline Casts 25-50 H /LPF Urine Mucus NEGATIVE /LPF Urine Culture Indicated YES White Blood Count 10.2 4.3-11.0 10^3/uL Red Blood Count 4.01 L 4.35-5.85 10^6/uL Hemoglobin 13.3 11.5-16.0 G/DL Hematocrit 38 35-52 % Mean Corpuscular Volume 94 80-99 FL Mean Corpuscular Hemoglobin 33 25-34 PG Mean Corpuscular Hemoglobin Concent 35 32-36 G/DL Red Cell Distribution Width 15.5 H 10.0-14.5 % Platelet Count 132 130-400 10^3/uL Mean Platelet Volume 9.0 7.4-10.4 FL Neutrophils (%) (Auto) 89 H 42-75 % Lymphocytes (%) (Auto) 7 L 12-44 % Monocytes (%) (Auto) 4 0-12 % Eosinophils (%) (Auto) 0 0-10 % Basophils (%) (Auto) 1 0-10 % Neutrophils # (Auto) 9.1 H 1.8-7.8 X 10^3 Lymphocytes # (Auto) 0.7 L 1.0-4.0 X 10^3 Monocytes # (Auto) 0.4 0.0-1.0 X 10^3 Eosinophils # (Auto) 0.0 0.0-0.3 10^3/uL Basophils # (Auto) 0.1 0.0-0.1 10^3/uL Neutrophils % (Manual) 63 % Lymphocytes % (Manual) 6 % Monocytes % (Manual) 3 % Eosinophils % (Manual) 1 % Band Neutrophils 27 % Polychromasia SLIGHT Prothrombin Time 27.3 H 12.2-14.7 SEC INR Comment 2.6 H 0.8-1.4 Activated Partial Thromboplast Time 40 H 24-35 SEC Sodium Level 131 L 135-145 MMOL/L Potassium Level 3.9 3.6-5.0 MMOL/L Chloride Level 97 L 98-107 MMOL/L Carbon Dioxide Level 23 21-32 MMOL/L Anion Gap 11 5-14 MMOL/L Blood Urea Nitrogen 12 7-18 MG/DL Creatinine 0.60 0.60-1.30 MG/DL Estimat Glomerular Filtration Rate > 60 BUN/Creatinine Ratio 20 Glucose Level 97 70-105 MG/DL Calcium Level 8.4 L 8.5-10.1 MG/DL Magnesium Level 1.5 L 1.8-2.4 MG/DL Total Bilirubin 3.8 H 0.1-1.0 MG/DL Aspartate Amino Transf (AST/SGOT) 66 H 5-34 U/L Alanine Aminotransferase (ALT/SGPT) 41 0-55 U/L Alkaline Phosphatase 127 40-136 U/L Troponin I < 0.30 <0.30 NG/ML B-Type Natriuretic Peptide 179.4 H <100.0 PG/ML Total Protein 5.7 L 6.4-8.2 GM/DL Albumin 2.3 L 3.2-4.5 GM/DL Blood Gas Puncture Site RT FEM Blood Gas Patient Temperature 96.2 Arterial Blood pH 7.29 *L 7.37-7.43 Arterial Blood Partial Pressure CO2 55 H 35-45 MMHG Arterial Blood Partial Pressure O2 79 79-93 MMHG Arterial Blood HCO3 26 23-27 MMOL/L Arterial Blood Total CO2 28.1 21.0-31.0 MMOL/L Arterial Blood Oxygen Saturation 94 94-100 % Arterial Blood Base Excess 0.2 -2.5-2.5 MMOL/L Prabhu Test NA Blood Gas Ventilator Setting YES Blood Gas Inspired Oxygen 100% My Orders Orders - LORETA LYNN MD Ns Iv 500 Ml (Sodium Chloride 0.9%) (06/02/17 15:58) Cbc With Automated Diff (06/02/17 16:12) Comprehensive Metabolic Panel (06/02/17 16:12) Lactic Acid Analyzer (06/02/17 16:12) Blood Culture (06/02/17 16:12) Sputum Culture (06/02/17 16:12) Ua Culture If Indicated (06/02/17 16:12) Protime With Inr (06/02/17 16:12) Partial Thromboplastin Time (06/02/17 16:12) O2 (06/02/17 16:12) Saline Lock/Iv-Start (06/02/17 16:12) Saline Lock/Iv-Start (06/02/17 16:12) Ekg Tracing (06/02/17 16:12) Troponin I (06/02/17 16:12) Vital Signs Adult Sepsis Patie Q1H (06/02/17 16:12) Remove Rings In Anticipation O (06/02/17 16:12) BNP (06/02/17 16:12) Magnesium (06/02/17 16:12) Arterial Blood Gas (06/02/17 16:50) Furosemide Injection (Lasix Injection) (06/02/17 16:14) Manual Differential (06/02/17 16:36) Ns Iv 1000 Ml (Sodium Chloride 0.9%) (06/02/17 17:15) Norepinephrine (Levophed) (06/02/17 17:15) Norepinephrine (Levophed) (06/02/17 17:06) Urine Culture (06/02/17 16:10) Ns (Ivpb) (Sodium Chloride 0.9%) (06/02/17 17:07) Norepinephrine (Levophed) (06/02/17 17:07) Catheter(Urinary) Insert & Ass 03,15 (06/02/17 17:18) Ng Tube Insert & Assessment (06/02/17 17:18) Piperacillin Sodium/Tazobactam (Zosyn Vi (06/02/17 17:30) Chest 1 View, Ap/Pa Only (06/02/17 ) D5w 100 Ml Ivpb (Dextrose 5% Water Iv So (06/02/17 17:22) Ns Iv 500 Ml (Sodium Chloride 0.9%) (06/02/17 17:23) Propofol Drip (Icu) (Diprivan Drip (Icu) (06/02/17 17:34) Vancomycin Injection (Vancomycin Injecti (06/02/17 18:30) Medications Given in ED Current Medications Medications Dose Ordered Sig/Liss Route Start Time Stop Time Status Last Admin Dose Admin Dextrose 100 ml @ ud STK-MED ONCE IV 06/02/17 17:22 06/02/17 17:25 DC 06/02/17 17:27 100 MLS/HR Piperacillin Sod/ Tazobactam Sod 4.5 gm ONCE ONCE IV 06/02/17 17:30 06/02/17 17:31 DC 06/02/17 17:27 4.5 GM Propofol 100 ml @ ud STK-MED ONCE IV 06/02/17 17:34 06/02/17 17:37 DC 06/02/17 17:47 6 MLS/HR Sodium Chloride 500 ml @ ud STK-MED ONCE .ROUTE 06/02/17 15:58 2/18/18 16:01 DC 06/02/17 17:30 500 MLS/HR Sodium Chloride 500 ml @ ud STK-MED ONCE .ROUTE 06/02/17 17:23 06/02/17 17:26 DC 06/02/17 16:03 500 MLS/HR Sodium Chloride 1,564.89 ml @ 782.445 mls/hr PRN PRN IV 06/02/17 17:15 06/02/17 17:10 782.445 MLS/HR Vancomycin HCl 1000 mg/Sodium Chloride 250 ml @ 250 mls/hr ONCE ONCE IV 06/02/17 18:30 06/02/17 19:29 06/02/17 18:30 250 MLS/HR Vital Signs/I&O Vital Sign - Last 12Hours 06/02/17 06/02/17 06/02/17 15:55 15:55 17:47 Temp 96.2 Pulse 103 107 Resp 38 34 B/P (MAP) 110/61 (77) 87/56 Pulse Ox 62 62 98 O2 Delivery Non Rebreather OxyMask Mechanical Ventilator O2 Flow Rate 15.00 Capillary Refill : Progress Note : Progress Note Seen and evaluated. IV via EMS, second IV established, labs, UA via Santos catheter. Patient's initial O2 sat was in the 60s and emergent intubation was performed. Labs, blood cultures, lactic acid normal saline 500 mL bolus. Patient does have significant lower extremity edema and crackles throughout. Lasix for heart failure concerns. After intubation and central line placed, patient became increasingly hypotensive. We will initiate Levophed. 1710: Chest x-rays complete and patient has multiple opacities concerning for significant pneumonia and/or volume overload. We will initiate antibiotic treatment as blood cultures have been drawn. Patient will receive high-volume fluid resuscitation due to the persistent hypotension and we will adjust Levophed as needed. Patient has poor urine output currently. 1754: Chest x- ray would indicate significant pneumonia and Zosyn has been initiated. Patient has been initiated on propofol for sedation and Levophed has been adjusted to maintain blood pressure. Patient will received 30 mL/kg of IV fluids. There is concern of volume overload but patient has extremely elevated lactic acid and likely pneumonia. Fluids will assist with blood pressure with the Levophed persists. 1803: I did discuss the case with Dr. Christina and she accepts patient for admission operations logistics analyst for Dr. Lane. We will consult the ICU overnight for management. We will add vancomycin and initiate septic shock order set. 1820: I attest a focused exam. Cap refill is less than 3 seconds with heart rate of 104 and O2 sat of 96 percent on vent settings of rate equals 16, tidal volume 400, PEEP of 5 and FiO2 100 percent. Blood pressure 95/62. ECG Initial ECG Impression Date: Jun 02, 2017 Initial ECG Impression Time: 17:07 Initial ECG Rate: 99 Initial ECG Rhythm: S.Tach Comment Sinus rhythm with left atrial abnormality. Normal but rightward axis. No evidence of ST elevation CO. No previous available for comparison. Interpreted by me. Diagnostic Imaging Diagonstic Imaging: Xray Plain Films/CT/US/NM/MRI: chest Comments NAME: CARLIE OLIVER REC#: [id number] PT STATUS: REG ER : 04/22/1949 PHYSICIAN: LORETA LYNN MD ADMIT DATE: 06/02/17/ER Draft Date of Exam:06/02/17 CHEST 1 VIEW, AP/PA ONLY INDICATION: Line placement. TECHNIQUE: Single view chest 5:10 PM. CORRELATION STUDY: 07/04/2016 FINDINGS: Endotracheal tube superimposed over the trachea with tip below the clavicles above the fox. Gastric tube tip passes below the left hemidiaphragm, tip likely in the body of the stomach. A right IJ central line is present with tip over the right paramediastinal region likely over the low SVC near the cavoatrial junction. There is extensive bilateral five lobe infiltrate present. Consolidation most pronounced involving the right upper lung, right lung base and left lung base. This obscures the hilar structures and vascular markings but do appear to be increased. Heart size also largely obscured but appears to be likely slightly enlarged. No pneumothorax post tube/line placement. IMPRESSION: 1. Support lines and tubes as above. 2. Extensive five lobed infiltrate could be reflective of multilobar pneumonia versus edema and/or hemorrhage. ARDS is also a consideration. Followup imaging recommended. Dictated on workstation # [id number] Dict: 06/02/17 1741 Trans: 06/02/17 1832 KATRINA [id number] Interpreted by: MUNIR RODRIGUEZ DO Electronically signed by: Reviewed: Reviewed by Me Departure Communication (Admissions) Time/Spoke to Admitting Phy: 18:06 Impression Impression: Primary Impression: Bilateral pneumonia Qualified Codes: J18.9 - Pneumonia, unspecified organism Additional Impression: Septic shock Disposition: ADMITTED INPATIENT Condition: Critical Admissions Decision to Admit Reason: Admit from ER (General) Decision to Admit/Date: Jun 02, 2017 Time/Decision to Admit Time: 18:06 Departure-Patient Inst. Referrals: AWILDA LANE DO (PCP/Family) Primary Care Physician LORETA LYNN MD Jun 02, 2017 17:01
[2017-06-02] MEDS ORDERED: NOREPINEPHRINE 4 MG/4 ML (LEVOPHED) AMP IV ONE ×2 (17:06→17:07)
[2017-06-02] MEDS ORDERED: NS (IVPB) 250 ML ONE (17:07)
[2017-06-02 17:08] LABS: BILIRUBIN,URINE 1+ (NEGATIVE)
[2017-06-02 17:09] LABS: BACTERIA,URINE FEW /HPF; HYALINE CASTS, URINE 25-50 /LPF
[2017-06-02 17:12] LABS: ALANINE AMINOTRANSFERASE 41 U/L (0-55); ALBUMIN 2.3 GM/DL (3.2-4.5); ALKALINE PHOSPHATASE 127 U/L (40-136); BILIRUBIN,TOTAL 3.8 MG/DL (0.1-1.0); BUN/CREATININE RATIO 20; CALCIUM 8.4 MG/DL (8.5-10.1); CARBON DIOXIDE 23 MMOL/L (21-32); CHLORIDE 97 MMOL/L (98-107); GFR ESTIMATED > 60; GLUCOSE 97 MG/DL (70-105); MAGNESIUM 1.5 MG/DL (1.8-2.4); POTASSIUM 3.9 MMOL/L (3.6-5.0); SODIUM 131 MMOL/L (135-145); TOTAL PROTEIN 5.7 GM/DL (6.4-8.2)
[2017-06-02 17:13] LABS: BAND NEUTROPHILS 27 %; EOSINOPHILS % (MANUAL) 1 %; LYMPHOCYTES % (MANUAL) 6 %; MONOCYTES % (MANUAL) 3 %; NEUTROPHILS % (MANUAL) 63 %; POLYCHROMASIA SLIGHT
[2017-06-02] MEDS ORDERED: NS IV PRN ×2 (17:15→20:15)
[2017-06-02] MEDS: NOREPINEPHRINE 4 MG in NS (IVPB) 250 ML IV SCH ×4 (17:20→21:07)
[2017-06-02] MEDS ORDERED: D5W 100 ML IVPB 100 ML IV ONE (17:22)
[2017-06-02] MEDS ORDERED: PIPERACILLIN/TAZO 4.5 GM VIAL (ZOSYN) IV ONE (17:30)
[2017-06-02] MEDS ORDERED: PROPOFOL DRIP (ICU) 100 ML IV ONE (17:34)
[2017-06-02] MEDS ORDERED: VANCOMYCIN INJECTION 1,000 MG in NS (IVPB) 250 ML IV ONE (18:30)
--- NOTE | 2017-06-02 18:32 | Diagnostic Imaging Report ---
INDICATION: Line placement. TECHNIQUE: Single view chest 5:10 PM. CORRELATION STUDY: 07/04/2016 FINDINGS: Endotracheal tube superimposed over the trachea with tip below the clavicles above the fox. Gastric tube tip passes below the left hemidiaphragm, tip likely in the body of the stomach. A right IJ central line is present with tip over the right paramediastinal region likely over the low SVC near the cavoatrial junction. There is extensive bilateral five lobe infiltrate present. Consolidation most pronounced involving the right upper lung, right lung base and left lung base. This obscures the hilar structures and vascular markings but do appear to be increased. Heart size also largely obscured but appears to be likely slightly enlarged. No pneumothorax post tube/line placement. IMPRESSION: 1. Support lines and tubes as above. 2. Extensive five lobed infiltrate could be reflective of multilobar pneumonia versus edema and/or hemorrhage. ARDS is also a consideration. Followup imaging recommended. Dictated by: Dictated on workstation # [id number]
[2017-06-02] MEDS ORDERED: fentaNYL INJECTION 100 MCG/2 ML AMP ONE (18:36)
[2017-06-02] MEDS ORDERED: VASOPRESSIN INJECTION 20 UNIT/ML VIAL ONE (19:34)
[2017-06-02] MEDS ORDERED: NS (IVPB) 50 ML ONE (19:34)
[2017-06-02] MEDS ORDERED: NS 1000 ML IV BAG IV ONE (19:45)
[2017-06-02] MEDS ORDERED: RT-ALBUTEROL/IPRATROPIUM 3 ML (DUONEB) VIAL INH PRN (20:15)
[2017-06-02] MEDS: NS IV 1000 ML 1,000 ML IV SCH ×2 (20:29→22:43)
[2017-06-02] MEDS ORDERED: CATHETER FLUSH 10 ML SYR IV PRN ×2 (20:30→22:00)
[2017-06-02] MEDS ORDERED: VASOPRESSIN IV SCH (20:30)
[2017-06-02] MEDS ORDERED: D5W IV SCH (20:30)
[2017-06-02] MEDS ORDERED: SUCCINYLCHOLINE INJ 100 MG/5 ML SYR INJ ONE (21:00)
[2017-06-02] MEDS ORDERED: ETOMIDATE IV SOLN 20 MG/10 ML VIAL IV ONE (21:00)
[2017-06-02] MEDS ORDERED: MIDAZOLAM 5 MG/5 ML (VERSED) VIAL INJ ONE (21:00)
[2017-06-02] MEDS: RT-ALBUTEROL/IPRATROPIUM 3 ML (DUONEB) VIAL INH SCH (22:02)
[2017-06-02] MEDS: CATHETER FLUSH 10 ML SYR IV SCH (22:26)
[2017-06-02] MEDS ORDERED: EPINEPHrine INJECTION 1 MG/ML AMP INJ ONE (23:30)
[2017-06-02] MEDS ORDERED: SODIUM BICARB 8.4% 50 MEQ/50 ML (ABBOTT) SYR INJ ONE (23:30)
[2017-06-02] MEDS ORDERED: PIPERACILLIN SODIUM/TAZOBACTAM 4.5 GM in NS (IVPB) 100 ML IV SCH (23:30)
[2017-06-02] MEDS ORDERED: ATROPINE INJECTION 1 MG/10 ML SYR (ABBOTT) INJ ONE (23:30)
[2017-06-03] VITALS (11 sets, daily range): BP systolic 50–100; BP diastolic 24–62
[2017-06-03] MEDS: RT-ALBUTEROL/IPRATROPIUM 3 ML (DUONEB) VIAL INH SCH ×3 (00:16→04:03)
[2017-06-03] MEDS ORDERED: VASOPRESSIN INJECTION 20 UNIT/ML VIAL ONE (00:33)
[2017-06-03] MEDS ORDERED: NS (IVPB) 50 ML ONE (00:33)
[2017-06-03] MEDS: NOREPINEPHRINE 4 MG in NS (IVPB) 250 ML IV SCH ×2 (00:42→03:27)
[2017-06-03] MEDS ORDERED: VASOPRESSIN INJECTION 20 UNIT in NS (IVPB) 50 ML IV SCH (01:15)
[2017-06-03] MEDS ORDERED: NS IV 1000 ML 1,000 ML IV SCH (02:42)
[2017-06-03 03:35] LABS: EOSINOPHILS # (AUTO) 0.2 10^3/uL (0.0-0.3); EOSINOPHILS % (AUTO) 1 % (0-10); HEMATOCRIT 40 % (35-52); LYMPHOCYTES # (AUTO) 1.7 X 10^3 (1.0-4.0); LYMPHOCYTES % (AUTO) 9 % (12-44); MEAN CORPUSCULAR HEMOGLOBIN 34 PG (25-34); MEAN CORPUSCULAR HGB CONC 35 G/DL (32-36); MEAN CORPUSCULAR VOLUME 96 FL (80-99); MEAN PLATELET VOLUME 9.6 FL (7.4-10.4); MONOCYTES # (AUTO) 0.1 X 10^3 (0.0-1.0); MONOCYTES % (AUTO) 0 % (0-12); PLATELET COUNT 230 10^3/uL (130-400); RED BLOOD COUNT 4.17 10^6/uL (4.35-5.85); RED CELL DISTRIBUTION WIDTH 16.3 % (10.0-14.5); WHITE BLOOD COUNT 19.7 10^3/uL (4.3-11.0)
[2017-06-03 03:47] LABS: BASOPHILS # (AUTO) 0.6 10^3/uL (0.0-0.1); BASOPHILS % (AUTO) 3 % (0-10); NEUTROPHILS # (AUTO) 17.2 X 10^3 (1.8-7.8); NEUTROPHILS % (AUTO) 87 % (42-75)
[2017-06-03 03:55] LABS: BAND NEUTROPHILS 53 %; BASOPHILS % (MANUAL) 0 %; EOSINOPHILS % (MANUAL) 1 %; LYMPHOCYTES % (MANUAL) 5 %; METAMYELOCYTES % 1 %; MONOCYTES % (MANUAL) 0 %; NEUTROPHILS % (MANUAL) 38 %; REACTIVE LYMPHOCYTES 2 %
[2017-06-03 03:56] LABS: ANISOCYTOSIS SLIGHT; CRENATED RBC MODERATE; NUCLEATED RED BLOOD CELLS 1; POIKILOCYTOSIS SLIGHT; POLYCHROMASIA SLIGHT; SCHISTOCYTES SLIGHT; TOXIC GRANULATION/VACUOLAZATIO 2+
[2017-06-03 03:58] LABS: ALANINE AMINOTRANSFERASE 32 U/L (0-55); ALBUMIN 1.8 GM/DL (3.2-4.5); ALKALINE PHOSPHATASE 105 U/L (40-136); BILIRUBIN,TOTAL 4.4 MG/DL (0.1-1.0); BUN/CREATININE RATIO 17; CALCIUM 7.6 MG/DL (8.5-10.1); CARBON DIOXIDE 16 MMOL/L (21-32); CHLORIDE 104 MMOL/L (98-107); CREATININE SERUM 0.71 MG/DL (0.60-1.30); GFR ESTIMATED > 60; MAGNESIUM 1.5 MG/DL (1.8-2.4); PHOSPHORUS 3.9 MG/DL (2.3-4.7); POTASSIUM 3.5 MMOL/L (3.6-5.0); SODIUM 137 MMOL/L (135-145); TOTAL PROTEIN 4.4 GM/DL (6.4-8.2)
[2017-06-03 04:20] LABS: GLUCOSE 5 MG/DL (70-105)
[2017-06-03] MEDS ORDERED: DEXTROSE 50% 50 ML (IMS) SYR ONE (04:24)
[2017-06-03] MEDS ORDERED: DEXTROSE 50% 50 ML (IMS) SYR IV ONE (04:30)
--- NOTE | 2017-06-03 05:17 | Pulmonary Consultation ---
History of Present Illness History of Present Illness Date of Consultation 06/03/17 05:12 Time Seen by Provider: 05:12 Date of Admission History of Present Illness 67yo with hx of severe dementia presented to ED via EMS secondary to progressive SOB and hypoxia at [facility] pt arrived requiring 15liters of oxygen via mask with Sp02 of 88%. Pt was intubated after Sp02 dropped to 65% and was intubated. since ICU arrival pt has continued to decline she is now hypotensive and maxed out on Levophed and Vasopressin. Pt is also unresponsive to even painful stimuli and pupils are pinpoint. Pt has a court appointed guardian who can not legally make patient a DNR. Code status was discussed last night with guardian who is an inpatient. Guardian also clarified that she is not authorized to change patients code status. Unable to obtain ROS. I am consulted for ICU management. Allergies and Home Medications Allergies Coded Allergies: No Known Drug Allergies (Unverified , 11/06/15) Home Medications Doxycycline Hyclate 100 Mg Capsule, 100 MG PO BID for 14 Days Prescribed by: PABLO PATEL on 07/04/16 1335 Past Uoztfou-Xwjssk-Waqknq Hx Patient Social History Alcohol Use: Denies Use Recreational Drug Use: No Smoking Status: Unknown if Ever Smoked Former Smoker, Quit: Nov 06, 2015 Recent Foreign Travel: No Contact w/Someone Who Travel: No Recent Infectious Disease Expo: No Recent Hopitalizations: No Immunizations Up To Date Tetanus Booster (TDap): Unknown Seasonal Allergies Seasonal Allergies: Yes Surgeries History of Surgeries: No Surgeries: Gallbladder, Hysterectomy Respiratory History of Respiratory Disorde: No Cardiovascular History of Cardiac Disorders: No Neurological History of Neurological Disord: Yes Reproductive System Hx Reproductive Disorders: No Sexually Transmitted Disease: No HIV/AIDS: No Genitourinary History of Genitourinary Disor: Yes Genitourinary Disorders: UTI-Chronic Gastrointestinal History of Gastrointestinal Di: Yes Gastrointestinal Disorders: Chronic Constipation Musculoskeletal History of Musculoskeletal Dis: No Endocrine History of Endocrine Disorders: No HEENT History of HEENT Disorders: No Cancer History of Cancer: No Psychosocial History of Psychiatric Problem: No Behavioral Health Disorders: Sleep Difficulties, PTSD, Depression Integumentary History of Skin or Integumenta: No Blood Transfusions History of Blood Disorders: No Adverse Reaction to a Blood Tr: No Reviewed Nursing Assessment Reviewed/Agree w Nursing PMH: Yes Family Medical History Significant Family History: No Pertinent Family Hx Review of Systems Time Seen by Provider: 06:53 Exam Exam Vital Signs Date Time Temp Pulse Resp B/P (MAP) Pulse Ox O2 Delivery O2 Flow Rate FiO2 06/03/17 04:04 77 21 100 24 06/03/17 04:00 100 Mechanical Ventilator 24.00 06/03/17 03:00 101 32 78/49 (59) 100 Mechanical Ventilator 30.00 06/03/17 02:05 105 37 100 24 06/03/17 02:00 104 35 79/53 (62) 100 Mechanical Ventilator 30.00 06/03/17 01:28 114 06/03/17 01:00 117 35 100/62 (75) 100 Mechanical Ventilator 30.00 06/03/17 00:16 122 37 100 50 06/03/17 00:13 121 06/03/17 00:08 97.9 120 36 92/58 (69) 100 Mechanical Ventilator 30.00 06/03/17 00:00 122 34 92/58 (69) 100 Mechanical Ventilator 30.00 06/03/17 00:00 100 Mechanical Ventilator 30.00 06/02/17 23:26 123 06/02/17 23:00 124 36 92/61 (71) 100 Mechanical Ventilator 30.00 06/02/17 22:47 96.9 Mechanical Ventilator 30.00 06/02/17 22:06 97.2 Mechanical Ventilator 30.00 06/02/17 22:02 124 37 100 50 06/02/17 22:00 124 35 91/62 (72) 100 Mechanical Ventilator 50.00 06/02/17 21:17 94.7 Mechanical Ventilator 50.00 06/02/17 21:00 117 33 88/60 (69) 100 Mechanical Ventilator 50.00 18 20:25 103 33 100 100 06/02/17 20:15 93.7 Mechanical Ventilator 50.00 06/02/17 20:00 100 Mechanical Ventilator 30.00 06/02/17 20:00 101 18 96/60 (72) 100 Mechanical Ventilator 100.00 18 19:38 100 30 100 100 06/02/17 19:38 101 06/02/17 19:28 101 25 92/57 (69) 100 Mechanical Ventilator 100.00 06/02/17 19:23 Mechanical Ventilator 100 18 19:23 93.3 Mechanical Ventilator 100.00 2/18/18 19:20 107 18 87/56 (66) 98 Mechanical Ventilator 06/02/17 17:47 107 34 87/56 98 Mechanical Ventilator 06/02/17 15:55 62 OxyMask 15.00 06/02/17 15:55 96.2 103 38 110/61 (77) 62 Non Rebreather I & O 06/03/17 07:00 Intake Total 4319.89 ml Output Total 2100 ml Balance 2219.89 ml General Appearance: Moderate Distress (pt is comotose on vent hypotensive and bradycardic. ) HEENT: Other (pupils are unreactive to light) Neck: Supple Respiratory: Decreased Breath Sounds Capillary Refill: Less Than 3 Seconds Gastrointestinal: non tender, soft Neurologic/Psychiatric: Other (pt is unresponsive to even painful stimuli) Skin: Cool Lymphatic: No Adenopathy Results Lab Laboratory Tests 06/02/17 16:36 06/03/17 03:30 Assessment/Plan Assessment/Plan Severe septic shock with bilateral pneumonia -PT is requiring Levophed and vasopressin that are maxed out -Start solucortef -Give 2 liters of NS bolus Acute respiratory failure -Pt is requiring ventilator therapy. No ABG for this AM yet. will increase RR to 22 (match patients total rate) and give 2 amps of NaHC03 and check ABG in 1hr. 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 hypoglycemia -Change IVF to D51/2NS -s/p 1 amp of D50 Hypokalemia, hypomagnesium -replace Hx of severe dementia PT's prognosis is very poor and she is not likely to make it through this event. Pt was made DNR last night by physician however we are not legally able to do that without court approval. Case was discussed with guardian who states she also does not have the power to change patients code status. I agree pt needs to be made DNR and she is unlikely to recover from her current state. I am going to change her back to full code until we can get an approval from pattern painter. 120min ICU time spent with patient and medical staff. Clinical Quality Measures DVT/VTE Risk/Contraindication: Risk Factor Score Per Nursin RFS Level Per Nursing on Admit: 4+=Very High YESSI ALVARADO DO Jun 03, 2017 05:17
[2017-06-03] MEDS ORDERED: D5 1/2 NS 1000 ML IV SOLUTION 1,000 ML IV SCH (05:30)
[2017-06-03] MEDS: NS IV 1000 ML 1,000 ML IV SCH ×2 (05:37→06:31)
[2017-06-03] MEDS ORDERED: EPINEPHrine INJECTION 1 MG/ML AMP IM ONE (05:45)
[2017-06-03] MEDS ORDERED: NS (IVPB) 250 ML ONE (05:45)
[2017-06-03] MEDS ORDERED: EPINEPHrine (OMNICELL DRIP KIT ONLY) 1 MG/ML AMP ONE (05:45)
[2017-06-03] MEDS ORDERED: EPINEPHrine 1 MG INJECTION 2 MG in NS (IVPB) 248 ML IV SCH (05:45)
[2017-06-03] MEDS ORDERED: inSUlin (REGULAR) HUMAN 1 UNIT/0.01 ML (CHARGE PER UNIT) SC SCH (06:00)
[2017-06-03] MEDS ORDERED: HYDROCORTISONE 100 MG/2 ML (Solu-CORTEF) VIAL IV SCH (06:00)
[2017-06-03] MEDS ORDERED: MAGNESIUM 1 GM/100 ML IVPB 100 ML IV SCH (06:00)
[2017-06-03] MEDS ORDERED: POTASSIUM CL 10MEQ/50ML IVPB 50 ML IV SCH (06:00)
[2017-06-03] MEDS ORDERED: SODIUM BICARB 8.4% 50 MEQ/50 ML (ABBOTT) SYR IV ONE (06:00)
[2017-06-03] MEDS: CATHETER FLUSH 10 ML SYR IV SCH (06:03)
[2017-06-03] MEDS: MAGNESIUM 1 GM/100 ML IVPB 100 ML IV SCH ×2 (06:29→06:30)
[2017-06-03] MEDS: POTASSIUM CL 10MEQ/50ML IVPB 50 ML IV SCH ×2 (06:29→06:30)
[2017-06-03] MEDS ORDERED: VANCOMYCIN 1 GM/NS 250 ML IVPB IV SCH ×2 (06:30)
--- NOTE | 2017-06-03 07:02 | Pulmonary Progress Note ---
Standard Progress Note Progress Notes Date Seen by Provider: Jun 03, 2017 Time Seen by Provider: 06:53 Called to room secondary to patient going into PEA with bradycardia. ACLS started and chest compressions done. PT has been maxed out on levophed, and vasopressin. Epi gtt was started prior to PEA. RTOSC was initially achieved with chest compressions, epi, and atropine pushes. PT continued to carlos down and kept going back into PEA after ACLS bolus pushes metabolized off. It is clear the only thing keeping patient from going back into PEA is epi and atropine pushes despite being on an epi gtt, vasopressin, and levophed gtt. PT has been unresponsive to even painful stimuli since admission. Her pupils were fixed and unreactive prior to PEA. It is clear pt has no chance of making it through this and epi, atropine pushes are the only thing keeping pt from going back into PEA. After several pushes of epi and atropine. Resuscitation efforts were stopped pt quickly went back into PEA and time of was called. Assessment & Plan Severe septic shock with bilateral pneumonia Acute respiratory failure CODE BLUE with PEA and bradycardia Metabolic lactic acidosis anoxic encephalopathy Hx of severe dementia YESSI ALVARADO DO Jun 03, 2017 07:02
[2017-06-03] MEDS ORDERED: PANTOPRAZOLE 40 MG/10 ML (PROTONIX) VIAL IV SCH (09:00)
[2017-06-03] MEDS ORDERED: VANCOMYCIN INJECTION 750 MG in NS (IVPB) 250 ML IV SCH (18:30)
[2017-06-04] MEDS ORDERED: NS IV 500 ML 500 ML IV SCH ×2 (10:15)
[2017-06-04] MEDS ORDERED: TROUGH ORDER-PHARMACY XX NR (17:30)
== END 2017-06-03 08:20 | disposition expired | DRG 871 ==
LOC: EDUNIT# 15:54 → ER 15:56 → EDBD 15:56 → ICU 18:18
PROVIDERS: ADMIT Internal Medicine; ATTEND Family Medicine
PROC: 5A1935Z Respiratory Ventilation, Less than 24 Consecutive Hours (ICD-10-PCS; principal; 2017-06-02)
DX: A41.9 Sepsis, unspecified organism (principal); R65.21 Severe sepsis with septic shock; J18.9 Pneumonia, unspecified organism; J96.00 Acute respiratory failure, unspecified whether with hypoxia or hypercapnia; G93.1 Anoxic brain damage, not elsewhere classified; R40.20 Unspecified coma; R00.1 Bradycardia, unspecified; E87.2 Acidosis; E16.2 Hypoglycemia, unspecified; E87.6 Hypokalemia; E83.42 Hypomagnesemia; F03.90 Unspecified dementia, unspecified severity, without behavioral disturbance, psychotic disturbance, mood disturbance, and anxiety
CPT/HCPCS: 31500; 36415; 71045; 80053; 81000; 82805; 82962; 83605; 83735; 83880; 84100; 84484; 85007; 85027; 85610; 85730; 87040; 87070; 87081; 87088; 87205; 93005; 94002; 94003; 94640; 94799